=== PATIENT | female | born 1945 | race Two or more races ===

== ENCOUNTER 2021-07-20 10:35 | Inpatient (IN) | payer OTHER ==
[~2021-07-20] VITALS: Ht 154.9 cm; Wt 54.4 kg
[2021-07-25] MEDS ORDERED: INTESTINEX680 M1 PO (09:04)
[2021-07-25] MEDS ORDERED: LEVOFLOXACIN500 MG PO (09:05)
[2021-07-25] MEDS ORDERED: AMBIEN10 MG PO (09:23)
== END 2021-07-25 10:42 | disposition home or self-care (01) | DRG 330 ==
LOC: ER 10:35 → SURH 13:20 → SEC-K 13:20 → O/R 15:30 → SURH 07-21 12:07
PROVIDERS: ADMIT Surgery; ATTEND Surgery
PROC: 07BC4ZX Excision of Pelvis Lymphatic, Percutaneous Endoscopic Approach, Diagnostic (ICD-10-PCS; 2021-07-20)
PROC: 3E0F7SF Introduction of Other Gas into Respiratory Tract, Via Natural or Artificial Opening (ICD-10-PCS; 2021-07-20)
PROC: 0DTF4ZZ Resection of Right Large Intestine, Percutaneous Endoscopic Approach (ICD-10-PCS; principal; 2021-07-20 19:00)
PROC: 4A033R1 Measurement of Arterial Saturation, Peripheral, Percutaneous Approach (ICD-10-PCS; 2021-07-21)
PROC: 4A12X4Z Monitoring of Cardiac Electrical Activity, External Approach (ICD-10-PCS; 2021-07-21)
DX: C18.0 Malignant neoplasm of cecum (principal); K56.609 Unspecified intestinal obstruction, unspecified as to partial versus complete obstruction; K56.1 Intussusception; Z20.822 Contact with and (suspected) exposure to COVID-19; K63.89 Other specified diseases of intestine; I10 Essential (primary) hypertension; Z95.2 Presence of prosthetic heart valve